=== PATIENT | male | born 1995 | race Caucasian/White ===

== ENCOUNTER 2018-04-03 15:12 | Emergency (ER) | payer MEDICAID ==
[~2018-04-03] VITALS: Ht 182.9 cm; Wt 93.0 kg
--- NOTE | 2018-04-03 15:15 | NUR ---
PRESENTS TO ER C/O CHEST PAIN RADIATING TO BACK. ALSO STATING HE FEELS ANXIOUS. PATIENT IS A/OX 4, BREATHING EVEN AND UNLABORED. NO SOB, NAD, VITALS STABLE. SAFETY AND COMFORT MEASURES IN PLACE. AWAITING MD ORDERS.
[2018-04-03] MEDS ORDERED: LORAZEPAM INJ 2 MG/ML VIAL ONE (15:34)
--- NOTE | 2018-04-03 15:40 | NUR ---
NEW IV STARTED ON LAC, 20G. BLOOD DRAWN AND SENT TO LAB.
[2018-04-03 15:42] LABS: BASOPHILS % (AUTO) 0.5 % (0.0-2.0); EOSINOPHILS % (AUTO) 1.9 % (0.0-6.0); HEMATOCRIT 46 % (39-51); HEMOGLOBIN 15.9 g/dL (13.5-17.5); LYMPHOCYTES # (AUTO) 3.3 /CMM (0.8-4.8); LYMPHOCYTES % (AUTO) 33.1 % (20.0-44.0); MEAN CORPUSCULAR HGB CONC 35 g/dl (31.0-36.0); MEAN CORPUSCULAR VOLUME 87 fL (80-96); MONOCYTES # (AUTO) 0.7 /CMM (0.1-1.30); MONOCYTES % (AUTO) 6.9 % (2.0-12.0); NEUTROPHILS # (AUTO) 5.7 /CMM (1.8-8.9); NEUTROPHILS % (AUTO) 57.6 % (43.0-81.0); PLATELET COUNT (AUTO) 326 /CMM (150-450); RDW COEFFICIENT OF VARIATION 12.1 (11.5-15.0); RED BLOOD CELL COUNT(AUTO) 5.25 MIL/uL (4.5-6.0); WHITE BLOOD COUNT (AUTO) 9.9 K/uL (4.3-11.0)
[2018-04-03] MEDS: LORAZEPAM INJ 2 MG/ML VIAL IV ONE (15:43)
--- NOTE | 2018-04-03 15:55 | NUR ---
COAL TRIMMER AT BEDSIDE.
--- NOTE | 2018-04-03 16:50 | NUR ---
IV removed. Catheter intact and site benign. Pressure and 4x4 applied to site. No bleeding noted. Patient discharged to home in stable condition. Written and verbal after care instructions given. Patient verbalizes understanding of instruction.
[2018-04-03 16:53] VITALS: BP 124/65
== END 2018-04-03 16:57 | disposition home or self-care (01) ==
LOC: ER 15:13
DX: R06.02 Shortness of breath (principal); F45.8 Other somatoform disorders; F12.90 Cannabis use, unspecified, uncomplicated
CPT/HCPCS: 36415; 71045-TC; 85025-TC; A4606; J2060; Z7610